=== PATIENT | female | born 1935 | race Two or more races ===

== ENCOUNTER 2021-07-10 08:58 | Emergency (ER) | payer OTHER ==
[~2021-07-10] VITALS: Ht 154.9 cm; Wt 77.1 kg
[2021-07-10] MEDS ORDERED: GLIPIZIDE ER2.5 MG (09:10)
[2021-07-10] MEDS ORDERED: JANUMET XR 50-1 EAC1 (09:10)
[2021-07-10] MEDS ORDERED: APRESOLINE 10MG10 MG (09:12)
[2021-07-10] MEDS ORDERED: GLIPIZIDE ER10 MG (09:12)
[2021-07-10] MEDS ORDERED: CHLORTHALIDONE25 MG (09:13)
[2021-07-10] MEDS ORDERED: GLUCOTROL10 MG (09:14)
== END 2021-07-10 11:58 | disposition home or self-care (01) ==
LOC: ER 08:58
DX: U07.1 COVID-19 (principal); E86.0 Dehydration

== ENCOUNTER 2022-08-22 13:19 | Emergency (ER) | payer OTHER ==
[~2022-08-22] VITALS: Ht 154.9 cm; Wt 77.1 kg
[~2022-08-22 13:19] MED LIST: APRESOLINE 10MG10 MG; CHLORTHALIDONE25 MG; GLIPIZIDE ER10 MG; GLIPIZIDE ER2.5 MG; GLUCOTROL10 MG; JANUMET XR 50-1 EAC1
[2022-08-22] MEDS ORDERED: AMLODIPINE-OLM1 EAC2 PO (14:05)
[2022-08-22] MEDS ORDERED: HYSINGLA ER20 MG (14:05)
== END 2022-08-22 20:58 | disposition home or self-care (01) ==
LOC: ER 13:19
DX: I10 Essential (primary) hypertension (principal); T50.995A Adverse effect of other drugs, medicaments and biological substances, initial encounter; Z88.8 Allergy status to other drugs, medicaments and biological substances; E11.9 Type 2 diabetes mellitus without complications; Z79.84 Long term (current) use of oral hypoglycemic drugs